=== PATIENT | female | born 1985 | race Caucasian/White ===

== ENCOUNTER 2016-09-26 12:09 | Inpatient (IN) ==
[2016-09-26 12:41] LABS: URINE SOURCE VOIDED
[2016-09-26] MEDS ORDERED: REGLAN PO ONE (12:41)
[2016-09-26] MEDS ORDERED: PEPCID IV PRN (12:41)
[2016-09-26] MEDS ORDERED: PEPCID PO PRN (12:41)
[2016-09-26] MEDS ORDERED: TYLENOL PO PRN (12:41)
[2016-09-26] MEDS ORDERED: ZOFRAN IV PRN (12:41)
[2016-09-26] MEDS ORDERED: PEPCID PO ONE (12:41)
[2016-09-26] MEDS ORDERED: PITOCIN 30 UNITS/LR 30 UNITS/500 ML IV.SOLN IV SCH (12:41)
[2016-09-26] MEDS ORDERED: KEFZOL 1 GM/D5W 1 GM/50 ML IVPB IV PRN (12:41)
[2016-09-26] MEDS ORDERED: STADOL IV PRN (12:41)
[2016-09-26] MEDS ORDERED: MINERAL OIL ONE (12:44)
[2016-09-26] MEDS ORDERED: SODIUM CHLORIDE 0.9% INJ SCH (12:45)
[2016-09-26] MEDS ORDERED: XYLOCAINE-MPF 1% INJ ONE (12:46)
[2016-09-26 12:48] LABS: BILIRUBIN URINE NEGATIVE (NEGATIVE); BLOOD URINE 1+ (NEGATIVE); CLARITY CLEAR (CLEAR); COLOR YELLOW; GLUCOSE URINE NEGATIVE (NEGATIVE); LEUKOCYTES URINE TRACE (NEGATIVE); NITRITE URINE NEGATIVE (NEGATIVE); SP GRAVITY URINE 1.005; UROBILINOGEN URINE NORMAL
[2016-09-26 13:30] LABS: MANUAL DIFF NEEDED? NO
[2016-09-26] MEDS: LR 1,000 ML IV SCH ×2 (13:42→14:54)
[2016-09-26 13:46] LABS: BASO% 0.3 % (0.0-0.8); EOS# 0.15 X1000 (0.0-0.7); EOS% 1.3 % (0.0-10.0); HEMATOCRIT 38.7 % (37.0-47.0); HEMOGLOBIN 13.2 g/dL (12.0-16.0); IMM GRAN# 0.05 X1000 (0.0-0.04); IMM GRAN% 0.4 % (0.0-0.5); LYMPH# 1.52 X1000 (1.2-3.4); LYMPH% 13.3 % (20.5-51.1); MCH 28.8 PG (27-31); MCHC 34.1 g/dL (33-37); MCV 84.5 FL (81-99); MONO# 0.69 X1000 (0.11-0.59); NEUT% 78.7 % (42.2-75.2); PLT 167 X1000 (130-400); RBC 4.58 XMIL (4.2-5.4)
[2016-09-26] MEDS ORDERED: NAROPIN 0.2% EPIDURAL SCH (14:15)
[2016-09-26] MEDS ORDERED: HYDROXYZINE IM PRN (17:04)
[2016-09-26] MEDS ORDERED: XYLOCAINE-MPF 1% INJ PRN (17:04)
[2016-09-26] MEDS ORDERED: BENADRYL PO PRN (17:04)
[2016-09-26] MEDS ORDERED: AMBIEN PO PRN (17:04)
[2016-09-26] MEDS ORDERED: NORCO-10 PO PRN (17:04)
[2016-09-26] MEDS ORDERED: PERCOCET-5 PO PRN (17:04)
[2016-09-26] MEDS ORDERED: M-M-R II VACCINE SUBQ ONE (17:04)
[2016-09-26] MEDS ORDERED: BOOSTRIX VACCINE IM ONE (17:04)
[2016-09-26] MEDS ORDERED: PERI MEDS (DERMOPLAST/NUPERCAINAL/TUCKS) MISC PRN (17:04)
[2016-09-26] MEDS ORDERED: BENADRYL IV PRN (17:04)
[2016-09-26] MEDS ORDERED: PERCOCET-10 PO PRN (17:04)
[2016-09-26] MEDS ORDERED: HYDROXYZINE PO PRN (17:04)
[2016-09-26] MEDS ORDERED: PITOCIN IM PRN (17:04)
[2016-09-26] MEDS ORDERED: MINERAL OIL PO PRN (17:04)
[2016-09-26] MEDS ORDERED: PITOCIN 20 UNITS/LR 20 UNITS/1,000 ML IV.SOLN IV SCH (17:04)
[2016-09-26] MEDS ORDERED: PITOCIN 30 UNITS/LR 30 UNITS/500 ML IV.SOLN IV ONE (17:04)
[2016-09-26] MEDS ORDERED: CYTOTEC PO PRN (17:04)
--- NOTE | 2016-09-26 17:40 | OPERATIVE NOTE ---
PROCEDURE DATE: 09/26/2016 DELIVERY PHYSICIAN: Hasmukh Ogden MD. TYPE OF DELIVERY: Spontaneous controlled vaginal delivery. ANESTHESIA: Epidural. FINDINGS: At 1639 a 6 pound 1 ounce female infant was delivered in occiput anterior presentation. Apgars were 9 at 1 minute and 10 at 5 minutes. SUMMARY: Silke Lu is a 31-year-old, 4, para 1-0-2-1, who is at term gestation. Her blood type is B positive. Rubella immune. Hepatitis B surface antigen, HIV, and group B strep are negative. She was seen in the office earlier today and was 4 cm dilated. She presented to Labor and Delivery a few hours later in active labor. She was admitted. An epidural was placed for labor pain management. Membranes were ruptured, revealing clear fluid. She progressed to labor without signs of distress or dystocia. She became complete and began pushing. She very rapidly crowned. At that point, she was placed in the dorsal lithotomy position and spontaneous controlled vaginal delivery occurred. Once the infant's head was delivered, the shoulders and body delivered without complications. Cord was clamped and cut. The was handed to the nurses for further care and evaluation. Cord blood was obtained. Placenta was spontaneously delivered and was intact. There were no cervical or vaginal lacerations. Blood loss estimated at 150 mL. The patient remained in the LDR recovering room without difficulty. cc: Hasmukh Ogden MD
[2016-09-26] MEDS: PERICOLACE PO SCH (22:00)
[2016-09-26] MEDS: MOTRIN PO PRN (22:40)
[2016-09-26] MEDS: NORCO-5 PO PRN (22:40)
[2016-09-27] MEDS: NORCO-5 PO PRN ×2 (04:56→16:43)
[2016-09-27 06:25] LABS: HEMATOCRIT 35.4 % (37.0-47.0); HEMOGLOBIN 12.1 g/dL (12.0-16.0); MCH 29.3 PG (27-31); MCHC 34.2 g/dL (33-37); MCV 85.7 FL (81-99); MPV 12.9 FL (7.4-10.4); RBC 4.13 XMIL (4.2-5.4)
[2016-09-27] MEDS: PRECARE PO SCH (09:40)
[2016-09-27] MEDS: MOTRIN PO PRN (16:43)
[2016-09-27] MEDS: PERICOLACE PO SCH (21:25)
[2016-09-28] MEDS: PRECARE PO SCH (08:54)
[2016-09-28] MEDS: NORCO-5 PO PRN (08:54)
[2016-09-28] MEDS: MOTRIN PO PRN (08:54)
[2016-09-28 12:05] VITALS: BP 130/79
--- NOTE | 2016-09-29 01:53 | DISCHARGE SUMMARY ---
ADMISSION DATE: 09/26/2016 DISCHARGE DATE: 09/28/2016 ADMITTING DIAGNOSIS: Term , active labor. DISCHARGE DIAGNOSIS: Term , active labor. CONDITION: Stable. DIET: As tolerated. ACTIVITY: Routine . MEDICATIONS: Continue her vitamins with iron, [id number] stool softener, over-the- counter nonsteroidal, and Waves 5 for pain. FOLLOWUP: She is to follow up in 6 weeks at the office. HOSPITAL COURSE: Please refer to Ms. Lu's records and delivery note. She presented in active labor, had a vaginal delivery, has done well afterwards, currently desiring discharge. Her vital signs are stable. She is afebrile. She is alert and cooperative. Physical exam within normal limits with the abdomen being slightly distended. The uterus is firm and nontender. Hemoglobin 12.1. Will discharge with the above instructions. cc: MD Hasmukh Anderson MD
== END 2016-09-28 16:50 | disposition home or self-care (01) ==
LOC: P.OPLD 12:09 → P.LD 12:09 → OBSVTOIN 16:38 → P.WC 21:13
PROVIDERS: ADMIT Obstetrics & Gynecology; ATTEND Obstetrics & Gynecology